=== PATIENT | female | born 1950 | race Caucasian/White ===

== ENCOUNTER 2022-01-09 12:03 | Outpatient (REF) | payer MEDICARE, SELFPAY ==
[2022-01-09 14:24] LABS: C Reactive Protein 0.06 mg/dL (< or = 0.50); Uric Acid 3.8 mg/dL (2.4-5.7)
[2022-01-09 15:12] LABS: Erythrocyte Sedimentation Rate 29 MM/HR (0-20)
== END 2022-01-09 12:04 | disposition home or self-care (01) ==
LOC: HO.MANLDS 12:03
PROVIDERS: Visit Provider Physician Assistant
DX: R22.32 Localized swelling, mass and lump, left upper limb (principal)
CPT/HCPCS: 36415; 84550; 85652; 86140

== ENCOUNTER 2024-05-17 15:38 | Outpatient (REF) | payer MEDICARE, SELFPAY ==
[2024-05-17 18:18] LABS: Alanine Aminotransferase 31 U/L (0-31); Albumin Level 4.2 g/dL (3.5-5.0); Alkaline Phosphatase 70 U/L (39-117); Anion Gap 14 (12-20); Aspartate Amino Transferase 34 U/L (5-31); Bilirubin Total 0.2 mg/dL (0.0-1.0); Blood Urea Nitrogen 15 mg/dL (9-16); Calcium 9.9 mg/dL (8.4-10.2); Carbon Dioxide 22 mmol/L (22-29); Chloride 105 mmol/L (96-108); Estimated Glomerular Filt Rate > 60; Glucose Random 100 mg/dL (60-115); Iron 81 mcg/dL (30-160); Percent Iron Saturation 26 % (15-50); Potassium 3.7 mmol/L (3.3-5.1); Sodium 137 mmol/L (135-145); Total Iron Binding Capacity 308 mcg/dL (228-428); Total Protein 7.2 g/dL (6.5-8.0); Unsaturated Iron Binding 227 ug/dL
[2024-05-17 18:32] LABS: T4 Thyroxine 8.6 ug/dL (4.5-12.0); Thyroid Stimulating Hormone 2.22 uIU/mL (0.32-4.0)
[2024-05-17 18:51] LABS: Vitamin B12 904 pg/mL (200-900)
== END 2024-05-17 15:39 | disposition home or self-care (01) ==
LOC: HO.MANLDS 15:38
PROVIDERS: Visit Provider Internal Medicine
DX: R41.3 Other amnesia (principal)
CPT/HCPCS: 36415; 80053; 82607; 83540; 84436; 84443

== ENCOUNTER 2024-12-08 13:53 | Outpatient (REF) | payer MEDICARE, SELFPAY ==
--- OUTSIDE RECORDS SUMMARY | 2024-12-08 14:25 | XMS_ITS | Data Portability ---
Author Organization [facility] Home Service Address [address] [place] [address] Assessment Encounter Date Assessment Date Assessment LastModified by Organization Details LastModified Time 05/17/2024 05/17/2024 [address] [place] [address] (DINING ROOM TABLES SET UP ATTENDANT) MDM HIGH MUST MEET 2 OUT OF 3 ELEMENTS: PROBLEMS, DATA OR RISK ELEMENT 1: PROBLEMS 1 OR MORE CHRONIC ILLNESS W/SEVERE EXACERBATION, PROGRESSION MAY REQUIRE HOSPITAL LEVEL CARE OR 1 ACUTE OR CHRONIC ILLNESS OR INJURY THAT POSES A THREAT TO LIFE OR BODILY FUNCTION ELEMENT 2: DATA: MUST MEET 2 OF 3 CATEGORIES CATEGORY 1 REVIEW OF PRIOR EXTERNAL NOTES REVIEW OF THE RESULTS ORDERING OF EACH TEST ASSESSMENT REQUIRING INDEPENDENT HISTORIAN(S) CATEGORY 2: INDEPENDENT INTERPRETATION OF TESTS BY ANOTHER PROVIDER/SPECIALI ST CATEGORY 3: DISCUSSION OF MGT OR TEST INTERPRETATION W/EXTERNAL PHYSICIAN/SPECIAL IST ELEMENT 3: RISK HIGH RISK OF MORBIDITY FROM ADDITIONAL DIAGNOSTIC TESTING OR TREATMENT PROVIDER MUST THOROUGHLY DOCUMENT EACH ELEMENT THAT IS COVERED pt and seen and evaluated with extensive discussion total time greater than 40 min of which 10 minwas physical eval. Not available 05/17/2024 21:18:43 08/23/2024 08/23/2024 [email or web address] Not available 09/2024 12:37:37 09/20/2024 09/20/2024 [address] [place] [address] (DINING ROOM TABLES SET UP ATTENDANT) : MDM LOW MUST MEET 2 OF 3 ELEMENTS: PROBLEMS, DATA OR RISK ELEMENT 1: PROBLEMS ADDRESSED (LOW): 2 OR MORE SELF-LIMITED OR MINOR PROBLEMS OR 1 STABLE CHRONIC ILLNESS OR 1 ACUTE UNCOMPLICATED ILLNESS OR INJURY ELEMENT 2: DATA TO BE REVISED AND ANALYZED (LOW) MUST MEET 1 OF 2 CATEGORIES: CATEGORY 1. REVIEW OF PRIOR EXTERNAL NOTES/RESULTS, ORDERING OF TEST(S) CATEGORY 2. ASSESSMENT REQUIRING INDEPENDENT HISTORIAN(S) INCLUDE WHO THE HISTORIAN IS AND RELATION TO PT AND WHY PT IS UNABLE TO GIVE COMPLETE HISTORY ELEMENT 3: RISK (LOW) RISK OF COMPLICATIONS AND/OR MORBIDITY OR MORTALITY OF PATIENT MANAGEMENT PROVIDER MUST THOROUGHLY DOCUMENT ALL OF THE ELEMENTS COVERED Not available 09/20/2024 13:20:17 12/08/2024 12/08/2024 [address] [place] [address] (DINING ROOM TABLES SET UP ATTENDANT) MDM MODERATE MUST MEET 2 OUT OF 3 ELEMENTS: PROBLEMS, DATA OR RISK ELEMENT 1: PROBLEMS ADDRESSED 1 OR MORE CHRONIC ILLNESS WITH EXACERBATION OR 2 OR MORE STABLE CHRONIC ILLNESSES OR 1 UNDIAGNOSED NEW PROBLEM OR 1 ACUTE ILLNESS W/SYMPTOMS OR 1 ACUTE COMPLICATED INJURY ELEMENT 2: DATA MUST MEET 1 OF 3 CATEGORIES CATEGORY 1: REVIEW OF PRIOR EXTERNAL NOTES, REVIEW OF RESULTS, ORDERING OF EACH TEST, ASSESSMENT REQUIRING INDEPENDENT HISTORIAN OR CATEGORY 2: INDEPENDENT INTERPRETATION OF TESTS BY ANOTHER PHYSICIAN OR SPECIALIST OR CATEGORY 3: DISCUSSION OF MGT OR TEST INTERPRETATION W/EXTERNAL PHYSICIAN OR SPECIALIST ELEMENT 3: RISK RISK OF COMPLICATIONS AND/OR MORBIDITY OR MORTALITY OF PATIENT MANAGEMENT PROVIDER MUST THOROUGHLY DOCUMENT EACH ELEMENT THAT IS COVERED Not available 12/08/2024 13:37:26 Plan of Treatment Reminders Order Date Submit Date Provider Last Modified By Organization Details Last Modified Time Details Appointments FOLLOW UP 15 2024 01:45P M DR BOLIVAR Not available Not available Not available Lab TSH, serum or plasma 2024 025 [facility], [address] [place] [address], [id number], 12/08/2024 13:42:38 CMP, serum or plasma 2024 025 [facility], [address] [place] [address], [address], 12/08/2024 13:42:38 CBC 2024 025 [facility], [address] [place] [address], [id number], 12/08/2024 13:42:38 vitamin B12 + folate, serum or blood 2023 024 [facility], [address] [place] [address], [place], [address], 05/18/2024 11:17:55 CMP, serum or plasma 2023 [facility], [address] [place] [address], [id number], 05/18/2024 11:17:55 TSH + free T4, serum 2023 [facility], [address] [place] [address], [address], 05/17/2024 15:33:31 iron + total iron-bind ing capacity (TIBC), serum 2023 [facility], [address] [place] [address], [address], 05/17/2024 15:33:31 Referral podiatris t referral 2023 024 [email or web address] Tyson Davis DPM, [address] [place] [address], [address], [place], [address], 06/25/2024 08:28:40 Procedures None recorded. Surgeries None recorded. Imaging bone density 2024 025 [email or web address] [facility], [address] [place], [address], 12/08/2024 13:58:39 XR, shoulder, 2 or more view 2024 025 [facility], [address] [facility], [place], [address], 08/24/2024 12:53:56 MRI, brain, w/o contrast 2023 024 [email or web address] Not available 05/18/2024 09:09:24 Medication Orders albuterol sulfate HFA 90 mcg/actua tion aerosol inhaler 2024 025 [facility]2025, [address] [place], [address], 12/08/2024 13:38:05 donepezil 10 mg tablet 2024 025 [facility]2024, [address] [place], [address], 08/23/2024 12:44:26 donepezil 5 mg tablet 2023 024 [facility]2024, [address] [place], [address], 05/17/2024 15:31:44 Patient TargetsNo targets recorded. Patient Instructions Encounter Date Encounter Id Patient Instructions Last Modified By Organization Details Last Modified Time 05/17/2024 [id number] pulse oximetry* Not available 05/17/2024 15:31:52 high blood pressure: care instructions Not available 05/17/2024 15:31:43 learning about high blood pressure Not available 05/17/2024 15:31:43 08/23/2024 [id number] pulse oximetry* Not available 08/23/2024 12:37:38 high blood pressure: care instructions Not available 08/23/2024 12:37:38 learning about high blood pressure Not available 08/23/2024 12:37:38 hypothyroidism: care instructions Not available 08/23/2024 12:37:38 12/08/2024 [id number] back strain: car e instructions Not available 12/08/2024 13:38:04 hypothyroidism: care instructions Not available 12/08/2024 13:38:[address] 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 in right foot right foot pain, bunion with flat foot Referring Physician: Roberta Charles, Internal Medicine, Encounter Date: 06/23/2024 Results Created Date Observation Date Name Description Value Unit Range Abnormal Flag Note LastModifiedBy Organization Detail LastModifiedTime 05/17/20 24 05/17/2024 pulse oxime try* Result 97 Not Available [facility] [address] [facility] [address], [place], [address], 04/21/2024 15:52:24 08/23/19 25 08/23/2024 pulse oxime try* Result 97 Not Available [facility] [address] [facility] [address], [place], [address], 08/20/2024 11:21:18 06/11/20 24 06/10/2024 MRI, brain , w/o contr ast No observ ation record ed. [email or web address] [facility] [address] [facility], [place], [address], 06/14/2024 11:30:50 08/24/19 25 08/24/2024 XR, jules hellen, 2 or more view No observ ation record ed. [email or web address] [facility] [address] [facility] [address], [place], [address], 08/27/2024 09:40:49 Result Notes None recorded. Problems Name Problem SNOMED Code Status Onset Date Resolution Date Notes Provider Name and Address Organization Details Recorded Time Sarika lau 358749775 Active 2018 Glynn Bolivar DO [address] [facility], [place], [address], [facility] 9 15:29:42 Localized swelling of left hand 437215790675 93824 Active 2021 ROB GALLAGHER [address] [place] [address], [address], [facility] 2 11:33:41 Memory impairmen t 198814367 Active 2022 ROB GALLAGHER [address] [place] [address], [address], [facility] 3 14:05:31 Word finding difficult y 039912645 Active 2022 ROB GALLAGHER [address] [place] [address], [address], [facility] 3 14:07:35 Anxiety 31110030 Active 2022 ROB GALLAGHER [address] [place] [address], [address], [facility] 3 14:12:08 Osteoarth ritis of joint of hand 99867284 Active 2022 ROB GALLAGHER [address] [place] [address], [address], [facility] 3 09:03:16 Osteoarth ritis of joint of hand 74728091 Active 2022 ROB GALLAGHER [address] [place] [address], [address], [facility] 3 09:03:30 Insomnia 565946174 Active 2022 ROB GALLAGHER [address] [place] [address], [address], [facility] 3 09:10:36 Occipital headache 925123 Active 2023 Glynn Bolivar, DO [address] [place] [address], [address], [facility] 4 10:55:24 Cervical radiculop athy 10411852 Active 2023 Glynn Bolivar, DO [address] [place] [address], [address], [facility] 4 17:06:42 Lesion of skin of face 008631734414 Active 2023 ROB GALLAGHER [address] [place] [address], [address], [facility] 4 14:24:57 Pain of right shoulder joint 799454665636 55041 Active 2023 ROB GALLAGHER [address] [place] [address], [address], [facility] 4 14:01:21 Neuralgia 59856120 Active 2023 ROB GALLAGHER [address] [place] [address], [address], [facility] 4 14:02:32 Pain in right foot 340206329454 107 Active 2023 ROB GALLAGHER [address] [place] [address], [address], [facility] 4 14:27:19 Lumbar sprain 910988116 Active 2024 Glynn Bolivar DO [address] [place] [address], [address], [facility] 5 13:37:12 Essential hypertens ion 84134801 Active 2017 [facility] 8 08:26:19 Migraine 70966881 Active 2017 Kaceycecilia Andrade [facility] 8 08:26:26 Gastroeso phageal reflux disease 566486056 Active 2017 Kaceycecilia Andrade [facility] 8 08:26:33 Asthma 740823722 Active 2017 Kaceycecilia Andrade [facility] 8 08:26:56 Hypothyro idism 62247369 Active 2017 Kaceycecilia Andrade [facility] 8 08:27:11 Problem Notes None recorded. Procedures Surgical History Date Name Laterality Status Provider Name and Address Organization Details Recorded Time 025 Corticosteroid Injection completed Glynn Bolivar DO [address] [place] [address], [address], [facility] 09/20/2024 13:19:48 024 Corticosteroid Injection completed Glynn Bolivar DO [address] [place] [address], [address], [facility] 04/02/2024 10:14:49 [facility] 01/12/2018 08:28:38 Carpal tunnel surgery completed Kacey [facility] 01/12/2018 08:29:02 Imaging Results Imaging Date Name Status LastModified by Organiz ation Details LastModified Time 06/10/2024 MRI, brain, w/o contrast completed [email or web address] [facility] [address] [facility], [place], [address], 06/14/2024 11:30:50 08/24/2024 XR, shoulder, 2 or more [facility] [address] [facility] [address], [place], [address], 08/27/2024 09:40:49 Procedure Notes None recorded. Medical Equipment None Reported. Allergies Allergen ID Allergen Name Allergen Category Reaction Reaction Severity Criticality Documentation Date Start Date Code Code System Note Provider Name and Address Organization Details Recorded Time 1682 Substance with sulfonami de structure and antibacte rial mechanism of action (substanc e) medicatio n Not available Not available Not available 01/12/2018 54872 8003 SNOMED Kacey Willsonmaddy [facility] 8 08:23:48 1683 Product containin g penicilli n (product) medicatio n Not available Not available Not available 01/12/2018 87913 8001 SNOMED Kaceycecilia Andrade [facility] 8 08:23:56 1684 Product containin g angiotens in-conver ting enzyme inhibitor (product) medicatio n Not available Not available Not available 01/12/2018 89278 009 SNOMED Kaceycecilia Willsonmaddy [facility] 8 08:24:03 1685 Product containin g beta adrenergi c receptor antagonis t (product) medicatio n Not available Not available Not available 01/12/2018 76720 009 SNOMED [facility] 08:24:14 1686 erythromy jean claude medicatio n Not available Not available Not available 01/12/2018 4053 RxNorm Kacey Cosmoyelitza griggs [facility] 8 08:24:23 1687 codeine medicatio n Not available Not available Not available 01/12/2018 2670 RxNorm Kacey griggs [facility] 8 08:24:35 1688 Iodinated contrast media (substanc e) medicatio n Not available Not available Not available 01/12/2018 87791 2004 SNOMED Kacey griggs [facility] 8 08:24:50 1689 strawberr y allergeni c extract food Not available Not available Not available 01/12/2018 87508 4 RxNorm Kacey griggs [facility] 8 08:25:34 1690 Pyridium medicatio n Not available Not available Not available 01/12/2018 8998 RxNorm Kacey griggs [facility] 8 08:25:52 Medications Name Sig Start Date Stop Date Status Note LastModified by Organization Details LastModified Time prednisone 10 mg tablet TAKE 4 TABS BY MOUTH FOR 2 DAYS, 3 TABS FOR 2 DAYS, 2 TABS FOR 2 DAYS AND 1 TAB FOR 2 DAYS 05/17 completed Not Available Not Available Not Available doxycycline hyclate 100 mg capsule TAKE 2 CAPSULES BY MOUTH AT ONCE WITH FOOD FOR ONE DAY active Not Available Not Available No t Available cefuroxime axetil 250 mg tablet Take 1 tablet every 12 hours by oral route. 01/19 completed Not Available Not Available Not Available donepezil 5 mg tablet TAKE 1 TABLET BY MOUTH ONCE EVERY DAY active Not Available Not Available No t Available donepezil 10 mg tablet TAKE 1 TABLET BY MOUTH EVERY DAY FOR 30 DAYS active Not Available Not Available No t Available Zithromax Z-Ronald 250 mg tablet TAKE 2 TABLETS (500 MG) BY ORAL ROUTE ONCE DAILY FOR 1 DAY THEN 1 TABLET (250 MG) BY ORAL ROUTE ONCE DAILY FOR 4 DAYS 08/24 completed Not Available Not Available Not Available sumatriptan 50 mg tablet TAKE 1 TABLET BY MOUTH FOR MIGRAINE MAY REPEAT IN ONE HOUR IF NEEDED active Not Available Not Available No t Available tramadol 50 mg tablet TAKE 1 TABLET BY MOUTH EVERY 6 HOURS NEEDED FOR 7 DAYS 07/30 completed Not Available Not Available Not Available triamcinolo ne acetonide 0.1 % topical cream APPLY THIN COAT TO AFFECTED AREA TWICE A DAY 10/21 completed Not Available Not Available Not Available levothyroxi ne 75 mcg tablet TAKE 1 TABLET BY MOUTH EVERY DAY active Not Available Not Available No t Available hydromorpho ne 2 mg tablet 06/05 completed Not Available Not Available Not Available ciprofloxac in 0.3 % eye drops 06/05 completed Not Available Not Available Not Available amlodipine 10 mg tablet TAKE 1 TABLET BY MOUTH EVERY DAY active Not Available Not Available No t Available pantoprazol e 40 mg tablet,shari yed release Take 1 tablet every day by oral route. 05/24 completed Not Available Not Available Not Available Advair Diskus 500 mcg-50 mcg/dose powder for inhalation Inhale 1 puff twice a day by inhalatio n route. 02/10 completed Not Available Not Available Not Available gabapentin 300 mg capsule TAKE 1 CAPSULE BY MOUTH EVERY DAY DIRECTED FOR 30 DAYS active Not Available Not Available No t Available montelukast 10 mg tablet TAKE 1 TABLET BY MOUTH EVERY DAY active Not Available Not Available No t Available albuterol sulfate HFA 90 mcg/actuati on aerosol inhaler INHALE 1-2 PUFFS EVERY 4-6 HOURS NEEDED 2024 active Not Available Not Available Not Avai lable ondansetron 4 mg disintegrat ing tablet TAKE 1 TABLET BY MOUTH EVERY 8 HOURS NEEDED FOR NAUSEA active Not Available Not Available No t Available doxycycline hyclate 100 mg tablet TAKE 1 TABLET TWICE A DAY BY ORAL ROUTE FOR 1 DAY. 03/25 completed Not Available Not Available Not Available tobramycin 0.3 %-dexametha sone 0.1 % eye drops,suspe nsion 06/05 completed Not Available Not Available Not Available oxycodone 5 mg tablet 06/05 completed Not Available Not Available Not Available Pepcid takes tid 06/05 completed Not Available Not Available Not Available Excedrin Migraine Take one tablet prn active Not Available Not Available No t Available diclofenac 1 % topical gel APPLY 2 GRAMS TO THE AFFECTED AREA(S) BY TOPICAL ROUTE 4 TIMES PER DAY 2022 active Not Available Not Available Not Avai lable Vitals Date Recorded Body height Body mass index (BMI) Body weight Heart rate Oxygen saturation Oxygen saturation in Arterial blood by Pulse oximetry Systolic blood pressure Diastolic blood pressure Provider Name and Address Organization Details Last Updated DateTime 4 153.67 cm 25.7 kg/m2 14381.3 8 g 66 /min 97 % 97 % 132 mm[Hg] 82 mm[Hg] Cristopher Almeida [facility] 4 15:05:59 Date Recorded Body height Body mass index (BMI) Body weight Heart rate Oxygen saturation Oxygen saturation in Arterial blood by Pulse oximetry Systolic blood pressure Diastolic blood pressure Provider Name and Address Organization Details Last Updated DateTime 4 153.67 cm 25 kg/m2 86814.0 1 g 68 /min 97 % 97 % 124 mm[Hg] 78 mm[Hg] Saskia Grmond [facility] 4 14:21:43 Date Recorded Body height Body mass index (BMI) Body weight Heart rate Oxygen saturation Oxygen saturation in Arterial blood by Pulse oximetry Systolic blood pressure Diastolic blood pressure Provider Name and Address Organization Details Last Updated DateTime 5 153.67 cm 24.2 kg/m2 29274.6 4 g 82 /min 98 % 98 % 126 mm[Hg] 76 mm[Hg] Cristopher Almeida [facility] 5 12:05:59 Date Recorded Body height Provider Name an d Address Organization Details Last Updated DateTime 09/20/2024 153.67 cm Kingsley Lloyd O [address] [facility], [place], [address], [facility] 09/20/2024 08:48:41 Date Recorded Body height Body mass index (BMI) Body weight Heart rate Oxygen saturation Oxygen saturation in Arterial blood by Pulse oximetry Systolic blood pressure Diastolic blood pressure Provider Name and Address Organization Details Last Updated DateTime 5 153.67 cm 24.5 kg/m2 53288.3 9 g 64 /min 97 % 97 % 126 mm[Hg] 82 mm[Hg] Jaja Pittman [facility] 5 13:30:54 Social History Question Answer Notes LastModified by Organizat ion Details LastModified Time Tobacco Smoking Status Never Smoker Not Available [employer] 05/23/2020 03:36:23 What Was The Date Of Your Most Recent Tobacco Screening? 12/08/2024 [email or web address] Information not available 12/08/2024 Sex: Unknown Functional Status Question Answer Note LastModified by Organization D etails LastModified Time Do you or have you ever used any other forms of tobacco or nicotine? No [email or web address] Information not available 01/09/2022 Mental Status None recorded. Family History Relationship Description Onset Age of this Age Resolved Age Notes LastModified by Organization Details LastModified Time Son Kidney disease 29 [email or web address] Not available 2019 13:29:34 Father Harmful pattern of use of alcohol 35 62 [email or web address] Not available 2019 13:29:34 Brother Alzheimer's disease [email or web address] Not available 2019 13:29:34 Medical History No medical history recorded. Gynecological HistoryNo gynecological history recorded. Obstetrics History GPAL:G 0 P 0 0 0 0 Immunizations Vaccine Type Date Status Note Provider Nam e and Address Organization Details Recorded Time COVID-19, mRNA, LNP-S, PF, 30 mcg/0.3 mL dose 1 completed Jaja griggs [facility] 01/23/2021 08:45:38 COVID-19, mRNA, LNP-S, PF, 30 mcg/0.3 mL dose 1 completed Jaja griggs [facility] 01/23/2021 08:45:45 COVID-19, mRNA, LNP-S, bivalent, PF, 50 mcg/0.5 mL or 25mcg/0.25 mL dose 2 completed Dianne griggs [facility] 06/07/2022 13:38:37 SARS-COV-2 (COVID-19) vaccine, UNSPECIFIED 3 completed Glynn Bolivar DO [address] [place] [address], [address], [facility] 06/25/2023 06:46:10 Past Encounters Encounter ID Performer Location Encounter Start Date Encounter Closed Date Diagnosis/Indication Diagnosis SNOMED-CT Code Diagnosis ICD10 Code Diagnosis Note [id number] Glynn Bolivar DO [facility] [address] [facility],[place] [address] 01/12/2018 11:03:52 01/12/2018 11:54:34 Essential hypertension 39317876 I10 well controlled Hypothyroidism 32064625 E03.9 stable Acute otitis media 23137 03 H66.[address] Jaime ortiz 1529740 6 H61.22 removed Moderate p ersistent asthma 344587022 J45.40 Gastroesop hageal reflux disease 937641063 K21.9 Tenosynovi tis of wrist 441587451 M65.839 continue splint, rest while home [id number] Glynn Bolivar [facility] [address] [facility],[place] [address] 07/29/2018 11:01:11 07/29/2018 18:01:20 Hypothyroidism 26740852 E03.9 stable Asthma 984533952 J45.90 9 Screening procedure 2012 5006 Z13.9 Essential hypertension 12460420 I10 well controlled [id number] Glynn Bolivar [facility] [address] [address] 01/19/2019 15:00:26 01/19/2019 15:38:59 Essential hypertension 47171540 I10 doing well no major issues tolerates her meds Hypothyroidism 59064433 E03.9 will need to check lab soon Asthma 569209795 J45.90 9 [place] [id number] Glynn Bolivar [facility] [address],[place] [address] 02/10/2019 09:29:49 02/10/2019 11:15:10 Pre-surgery evaluation 790534708 Z01.818 labs and ekg reviewed and are wnl WBC slightly elevated, likely due to recent ear infection she is relatively low risk and is cleared for this procedure Asthma 847106807 J45.90 9 Essential hypertension 07287770 I10 stable [id number] Glynn Bolivar [facility] [address] [facility],[place] [address] 05/24/2019 15:59:30 05/24/2019 16:35:39 Upper respiratory infection 62576666 J06.9 likely sinusitis has taken zpack in the past without issue Asthma 747881069 J45.90 9 Essential hypertension 25590116 I10 stable [id number] Glynn Bolivar [facility] [address] [facility],[place] [address] 08/24/2019 14:14:39 08/24/2019 14:51:09 Asthma 031849533 J45.909 Essential hypertension 25080639 I10 stable Migraine 71994046 G43.90 9 Headache 16100421 R51 ? cervicogen ic Neck pain 25288547 M54.2 heat, stretching , massage pt to call if she would like to have muscle relaxant will do baclofen 10 mg BID [id number] Glynn Bolivar [facility] [address] [facility],[place] [address] 12/24/2019 14:02:47 12/24/2019 14:47:36 Asthma 520031834 J45.909 stable Atypical chest pain 1025 36930 R07.89 resolved most likely musculoske letal in nature and has not had an episode since she had let herself rest [id number] Glynn Bolivar [facility] [address] [facility],[place] [address] 03/29/2020 08:56:25 03/29/2020 11:51:48 [id number] Glynn Bolivar [facility] [address] [facility] [address] 06/05/2020 13:25:28 06/05/2020 13:52:07 Asthma 010335701 J45.909 stable Hypothyroidism 18604215 E03.9 put in standing order needs recheck Essential hypertension 12537769 I10 BP excellent today [id number] Glynn Bolivar [facility] [address] [facility],[place] [address] 01/29/2021 13:27:38 01/29/2021 14:29:37 Active or passive immunization 151351052 Z23 advised Adult [facility] th examination 551424714 Z00.00 BP is excellent Allergic rhinitis 237626 04 J30.9 needs refill [id number] Glynn Bolivar [facility] [address] [facility] [address],[place] [address] 09/12/2021 11:10:02 09/12/2021 12:31:03 Lesion of skin of face 2285239322 06 L98.9 will fu with derm referralin formation given to patienttol d to call and schedule [id number] Glynn Bolivar [facility] Internal Medicine [address] [facility], [place] [address] 01/09/2022 11:07:00 01/09/2022 11:47:28 Localized swelling of left hand 6662271809 0278091 R22.32 will fu with uric acid, crp, esr to test for possible gout or pseudogout Asthma 726287539 J45.20 [place] [id number] Glynn Bolivar [facility] Internal Medicine [address] [facility], [place] [address] 10/21/2022 13:32:46 10/21/2022 16:50:26 Memory impairment 151562661 R41.3 will set up with lab work first Word findi ng difficulty 675818632 F80.89 family concernsag jose to work-up Anxiety 74156235 F41.1 related to her son being transferre d to [place] [id number] Glynn Bolivra [facility] Internal Medicine [address] [place] [address], [place] [address] 03/25/2023 10:46:02 03/25/2023 12:16:54 Migraine 73889742 G43.819 [place] [id number] Glynn Bolivar [facility] Internal [facility] [address] [facility],[place] [address] 05/14/2023 08:50:08 05/14/2023 13:41:08 Osteoarthritis of joint of hand 86165480 M19.042 will try voltaren geldoesn't do well with meds sometime Insomnia 998716699 G47.0 9 given alternativ e OTC to use for sleepingca n also use the APAP PM more frequently [id number] Glynn Bolivar [facility] Internal Medicine [address] [facility],[place] [address] 07/30/2023 08:04:00 08/01/2023 11:37:13 Migraine 18428471 G43.819 stable per patient [id number] Glynn Bolivar [facility] Internal Medicine [address] [facility], [place] [address] 10/07/2023 09:57:45 10/07/2023 11:06:45 Asthma 253875358 J45.20 stable and asymptomat ic Essential hypertension 84144232 I10 doing well no major issues tolerates her meds Hypothyroidism 96850323 E03.9 will need to check lab soon Migraine 08337679 G43.81 9 has been stable Occipital headache 05302 7 R51.9 need to r/o intrinsic ds first believe she will benefit from PT she will contact her ownif above work up neg then this is occip neuralgia [id number] Glynn Bolivar [facility] Internal [facility] [address] [facility], [place] [address] 12/31/2023 13:53:02 12/31/2023 15:30:56 Depression screening 238601630 Z13.31 0 Lesion of skin of face 4918876034 06 L98.9 will fu with derm referralin formation given to patienttorin briones to call and schedule (second referral, patient didn't make an appt last time) [id number] Glynn Bolivar [facility] Internal [facility] [address] [facility], [place] [address] 03/12/2024 13:37:42 03/12/2024 14:38:56 Pain of right shoulder joint 7391719521 5839687 M25.511 will start on prednisone taper and will give her something for the nerve pain Neuralgia 37032874 M79.2 will start on pain med for nerve pain [id number] Glynn Bolivar [facility] Internal [facility] [address] [facility], [place] [address] 04/02/2024 09:47:33 04/02/2024 10:16:16 Pain of right shoulder joint 1352672363 3736972 M25.511 jacob well bernadette [id number] Glynn Bolivar [facility] Internal Medicine [address] [facility] [address],[place] [address] 05/17/2024 14:41:56 05/17/2024 15:37:11 Asthma 489810357 J45.20 stable and asymptomat ic Essential hypertension 50334626 I10 doing well no major issues tolerates her meds Gastroesop hageal reflux disease 411367362 K21.9 no sx Hypothyroidism 57295495 E03.9 will need to check lab soon Memory impairment 825606 006 R41.3 we will give her a trial of donepizil 10mg [id number] [facility] 179 [facility], [place] 7 06/23/2024 14:17:07 06/23/2024 14:41:02 Pain in right foot 3668441638 29493 M79.671 right foot pain due to bone deformity and bunion, arthritisw ill f/u wit [id number] [facility] [address] [facility] [address], [place] [address] 08/23/2024 11:44:47 08/23/2024 14:45:42 Asthma 933305314 J45.20 stable and asymptomat ic Essential hypertension 15256866 I10 doing well no major issues tolerates her meds Hypothyroidism 20098484 E03.9 will need to check lab soon Memory impairment 729107 006 R41.3 we will give her a increase of donepizil to 10mg Pain of ri ght shoulder joint 3700038532 3185686 M25.511 jacob well bernadette [id number] [facility] [address] [facility] [address],[place] [address] 09/20/2024 08:44:57 09/20/2024 09:05:06 Pain of right shoulder joint 9183441741 4389940 M25.511 jacob well bernadette [id number] Glynn Bolivar [facility] Medicine [address] [facility] [address],[place] [address] 12/08/2024 13:22:36 12/08/2024 13:58:39 Depression screening 193562214 Z13.31 neg Asthma 462124316 J45.20 stable and asymptomat ic Lumbar sprain 357930646 S33.5XXD doesnt want treatment Hypothyroidism 41835373 E03.9 will need to check lab soon Postmenopa usal osteopenia 398274720 M85.80 Z78.0 Health Concerns Section Related Observation LastModified by Organization Detai ls LastModified Time None Recorded Concern Status LastModified by Organization Details LastModified Time None Recorded Advance Directives Directive None Recorded Payers Encounter Date Sequence Insurance Name Policy Number Policy Greene Covered Member ID Greene Member ID Guarantor Name 05/17/2024 1 [facility] (MEDICARE REPLACEMENT PPO) [id number] Iris Viera [id number] Iris Viera 06/23/2024 1 [place] PPO) [id number] Iris Viera [id number] Iris Viera 08/23/2024 1 [place] PPO) [id number] Iris Viera [id number] Iris Viera 09/20/2024 1 [place] PPO) [id number] Iris Viera [id number] Iris Viera 12/08/2024 1 [place] PPO) [id number] Iris Viera [id number] Iris Viera Notes Date Note Type Note Provider Name and Address Organization Details Recorded Time 4 text/htm l here for rechkstates feels well'appetite is oksleep is good (and son) both say that they have noticed worseningsymptoms of her impairments with memory Glynn Bolivar, DO [address] [facility], [place], [address], [facility] 05/17/2024 21:18:54 4 text/htm l right foot pain x 2 weeks the patient reports she has been having right foot pain x 2 weeksthe patient reports it started to get worse with the last two weeks without trauma or injury the patient does have a bunion with arthritishas a flat foot, disruption of weight is all along the lateral side of her foot recommended ROB GALLAGHER [address] [place] [address], [address], [facility] 06/23/2024 14:37:55 5 text/htm l Care Management - HypertensionReported bypatient.Self Care:not under emotional stress Severity:symptoms are improving; does not interfere with daily activities Associated Symptoms:no dizziness; no lightheadedness; no chest pain; no shortness of breath; no palpitations; no edema; no calf muscle cramps; no blurred vision; no confusion; no headaches; no fatigue here for rechk following a episode of vomiting and vagal response while at a restauranthaving some right shoullder pain nowher memory is good for long termbut her short term memory is getting worse Glynn Bolivar DO [address] [place] [address], [address], [facility] 08/23/2024 12:44:55 5 text/htm l here for jacob injection Glynn Bolivar DO [address] [place] [address], [address], [facility] 09/20/2024 13:21:04 5 text/htm l Back PainReported bypatient.Location:pain is not radiating Severity:pain level 3/10; same compared to previous episode; nagging pain Associated Symptoms:no fever; no weak limbs; no numbness of the legs/feet; no tingling; no incontinence; no shortness of breath; no unintentional weight loss; no chills; no night sweats; no gait instability; no bowel/bladder symptoms; no recent increase in stress Previous Injury:no prior injury to back; no prior malignancy Glynn Bolivar DO [address] [place] [address], [address], [facility] 12/08/2024 13:47:36 OBGyn Episode No OBEpisode recorded.
--- OUTSIDE RECORDS SUMMARY | 2024-12-08 14:25 | XMS_ITS | Continuity of Care Document ---
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 Procedures None recorded. Surgeries None recorded. Imaging bone density 2024 025 [email or web address] [facility], [address] [facility], [place], [address], 12/08/2024 13:58:39 Medication Orders albuterol sulfate HFA 90 mcg/actua tion aerosol inhaler 2024 025 [facility], [address] [facility], [place], [address], 12/08/2024 13:38:05 Patient TargetsNo targets recorded. Patient Instructions Encounter Date Encounter Id Patient Instructions Last Modified By Organization Details Last Modified Time 12/08/2024 [id number] back strain: car e instructions Not available 12/08/2024 13:38:04 hypothyroidism: care instructions Not available 12/08/2024 13:38:04 Reason for Referral None Reported. Problems Name Problem SNOMED Code Status Onset Date Resolution Date Notes Provider Name and Address Organization Details Recorded Time Sarika lau 316398423 Active 2018 Glynn Bolivar DO [address] [place], [address], [facility] 9 15:29:42 Localized swelling of left hand 843722827749 43838 Active 2021 ROB GALLAGHER [address] [place], [address], [facility] 2 11:33:41 Memory impairmen t 189264639 Active 2022 ROB GALLAGHER [address] [place], [address], [facility] 3 14:05:31 Word finding difficult y 880160448 Active 2022 ROB GALLAGHER [address] [place] [address], [address], [facility] 3 14:07:35 Anxiety 60868352 Active 2022 ROB GALLAGHER [address] [place], [address], [facility] 3 14:12:08 Osteoarth ritis of joint of hand 17571784 Active 2022 ROB GALLAGHER [address] [place] [address], [address], [facility] 3 09:03:16 Osteoarth ritis of joint of hand 54821650 Active 2022 ROB GALLAGHER [address] [place] [address], [address], [facility] 3 09:03:30 Insomnia 137084057 Active 2022 ROB GALLAGHER [address] [place] [address], [address], [facility] 3 09:10:36 Occipital headache 419352 Active 2023 Glynn Bolivar DO [address] [place] [address], [address], [facility] 4 10:55:24 Cervical radiculop athy 28495528 Active 2023 Glynn Bolivar DO [address] [place] [address], [address], [facility] 4 17:06:42 Lesion of skin of face 427115005075 Active 2023 ROB GALLAGHER [address] [place] [address], [address], [facility] 4 14:24:57 Pain of right shoulder joint 001454772677 24286 Active 2023 ROB GALLAGHER [address] [place] [address], [address], [facility] 4 14:01:21 Neuralgia 61495675 Active 2023 ROB GALLAGHER [address] [place] [address], [address], [facility] 4 14:02:32 Pain in right foot 833572623645 107 Active 2023 ROB GALLAGHER [address] [place] [address], [address], [facility] 4 14:27:19 Lumbar sprain 670412815 Active 2024 Glynn Bolivar DO [address] [place] [address], [address], [facility] 5 13:37:12 Essential hypertens ion 98819075 Active 2017 [facility] 08:26:19 Migraine 36613266 Active 2017 [facility] 08:26:26 Gastroeso phageal reflux disease 404003166 Active 2017 Kacey Andrade [facility] 8 08:26:33 Asthma 842447782 Active 2017 Kacey Andrade [facility] 8 08:26:56 Hypothyro idism 50969785 Active 2017 Kaceycecilia Andrade [facility] 8 08:27:11 Problem Notes None recorded. Procedures Surgical History Date Name Laterality Status Provider Name and Address Organization Details Recorded Time 025 Corticosteroid Injection completed Glynn Bolivar DO [address] [place] [address], [address], [facility] Internal [facility] 09/20/2024 13:19:48 024 Corticosteroid Injection completed Glynn Bolivar DO [address] [place] [address], [address], [facility] Internal [facility] 04/02/2024 10:14:49 Cholecystectomy completed Kacey Andrade [facility] Internal [facility] 01/12/2018 08:28:38 Carpal tunnel surgery completed Kaceycecilia Andrade [facility] 01/12/2018 08:29:02 Imaging Results None recorded. Procedure Notes None recorded. Medical Equipment None Reported. Allergies Allergen ID Allergen Name Allergen Category Reaction Reaction Severity Criticality Documentation Date Start Date Code Code System Note Provider Name and Address Organization Details Recorded Time 1682 Substance with sulfonami de structure and antibacte rial mechanism of action (substanc e) medicatio n Not available Not available Not available 01/12/2018 59369 8003 SN[facility]ED [facility] 08:23:48 1683 Product containin g penicilli n (product) medicatio n Not available Not available Not available 01/12/2018 78178 8001 SNOMED [facility] 8 08:23:56 1684 Product containin g angiotens in-conver ting enzyme inhibitor (product) medicatio n Not available Not available Not available 01/12/2018 54273 009 SNOMED Kaceycecilia Andrade [facility] 8 08:24:03 1685 Product containin g beta adrenergi c receptor antagonis t (product) medicatio n Not available Not available Not available 01/12/2018 85352 009 SNOMED [facility] 8 08:24:14 1686 erythromy jean claude medicatio n Not available Not available Not available 01/12/2018 4053 RxNorm [facility] 8 08:24:23 1687 codeine medicatio n Not available Not available Not available 01/12/2018 2670 RxNorm Kaceycecilia Andrade [facility] 8 08:24:35 1688 Iodinated contrast media (substanc e) medicatio n Not available Not available Not available 01/12/2018 98767 2004 SNOMED [facility] 8 08:24:50 1689 strawberr y allergeni c extract food Not available Not available Not available 01/12/2018 65915 4 RxNorm [facility] 8 08:25:34 1690 Pyridium medicatio n Not available Not available Not available 01/12/2018 8998 RxNorm [facility] 8 08:25:52 Medications Name Sig Start Date [...] 2024 active Not Available Not Available Not Robert markham ondansetron 4 mg disintegrat ing tablet TAKE [...] Updated DateTime 5 153.67 cm 24.5 kg/m2 07247.3 9 g 64 /min 97 % 97 % 126 mm[Hg] 82 mm[Hg] [facility] 5 13:30:54 Social History Question Answer Notes LastModified by Organizat ion Details LastModified Time Tobacco Smoking Status Never Smoker Not Available [facility] 05/23/2020 03:36:23 What Was The Date Of [...] mcg/0.3 mL dose 1 completed Jaja griggs [facility] Internal [facility] 01/23/2021 08:45:38 COVID-19, mRNA, LNP-S, PF, 30 mcg/0.3 mL dose 1 completed Jaja griggs [facility] Internal [facility] 01/23/2021 08:45:45 COVID-19, mRNA, LNP-S, bivalent, PF, 50 mcg/0.5 mL or 25mcg/0.25 mL dose 2 completed Dianne griggs [facility] Internal [facility] 06/07/2022 13:38:37 SARS-COV-2 (COVID-19) vaccine, UNSPECIFIED 3 completed Glynn Bolivar DO [address] [place] [address], [address], [facility] Internal [facility] 06/25/2023 06:46:10 Past Encounters Encounter ID Performer Location Encounter Start Date Encounter Closed Date Diagnosis/Indication Diagnosis SNOMED-CT Code Diagnosis ICD10 Code Diagnosis Note [id number] Glynn Bolivar DO [facility] Internal Medicine [address] [place] [address],[place] [address] 12/08/2024 13:22:36 12/08/2024 13:58:39 Depression screening 626181271 Z13.31 neg Asthma 881630535 J45.20 stable and asymptomat ic Lumbar sprain 784408593 S33.5XXD doesnt want treatment Hypothyroidism 47550586 E03.9 will need to check lab soon Postmenopa usal osteopenia 945923555 M85.80 Z78.0 Health Concerns Section Related Observation LastModified by Organization Detai ls LastModified Time None Recorded Concern Status LastModified by Organization Details LastModified Time None Recorded Payers Encounter Date Sequence Insurance Name Policy Number Policy Greene Covered Member ID Greene Member ID Guarantor Name 12/08/2024 1 [facility]: MEDICARE PPO BLUE (MEDICARE REPLACEMENT PPO) [id number] Iris Viera [id number] Iris Viera Notes Date Note Type Note Provider Name a de Address Organization Details Recorded Time 12/08/2024 text/html Back PainReporte d bypatient.Location :pain is not radiating Severity:pain level 3/10; same compared to previous episode; nagging pain Associated Symptoms:no fever; no weak limbs; no numbness of the legs/feet; no tingling; no incontinence; no shortness of breath; no unintentional weight loss; no chills; no night sweats; no gait instability; no bowel/bladder symptoms; no recent increase in stress Previous Injury:no prior injury to back; no prior malignancy Glynn Bolivar, [address] [facility], [place], [address], [facility] 12/08/2024 13:47:36 OBGyn Episode No OBEpisode recorded.
[2024-12-08 18:07] LABS: MANUAL DIFF FLAG NO
[2024-12-08 18:20] LABS: Basophils Absolute Auto 0.1 X10*3/uL (0.0-0.2); Eosinophils Absolute Auto 0.2 X10*3/uL (0.0-0.4); Eosinophils Percent Auto 2.5 % (0-4); Hematocrit 35.7 % (37.0-47.0); Hemoglobin 11.7 g/dl (12.0-16.0); Imm Gran Abs Auto 0.02 X10*3/uL (0.00-0.03); Imm Gran Pct Auto 0.3 % (0.0-0.4); Lymphocytes Absolute Auto 1.2 X10*3/uL (1.2-4.9); Lymphocytes Percent Auto 16.2 % (20-40); Mean Corpuscular HGB Conc 32.8 g/dl (31.0-35.0); Mean Corpuscular Hemoglobin 30.8 pg (27.0-33.0); Mean Corpuscular Volume 93.9 fL (80.0-98.0); Mean Platelet Volume 10.3 fL (9.4-12.3); Monocytes Absolute Auto 0.6 X10*3/uL (0.1-1.2); Monocytes Percent Auto 8.9 % (2-11); Neutrophils Absolute Auto 5.1 x10*3/uL (2.0-8.3); Neutrophils Percent Auto 71.1 % (45-73); Platelet Count 301 X10*3/uL (160-400); Red Cell Distribution Width 14.1 % (11.0-16.0); White Blood Count 7.2 X10*3/uL (4.8-10.8)
[2024-12-08 18:36] LABS: Alanine Aminotransferase 20 U/L (0-31); Albumin Level 4.1 g/dL (3.5-5.0); Alkaline Phosphatase 75 U/L (39-117); Anion Gap 15 (12-20); Aspartate Amino Transferase 32 U/L (5-31); Bilirubin Total 0.2 mg/dL (0.0-1.0); Blood Urea Nitrogen 25 mg/dL (9-16); Carbon Dioxide 24 mmol/L (22-29); Chloride 105 mmol/L (96-108); Estimated Glomerular Filt Rate 58; Glucose Random 90 mg/dL (60-115); Potassium 3.7 mmol/L (3.3-5.1); Sodium 140 mmol/L (135-145)
[2024-12-08 18:55] LABS: Thyroid Stimulating Hormone 1.76 uIU/mL (0.32-4.0)
== END 2024-12-08 13:54 | disposition home or self-care (01) ==
LOC: HO.MANLDS 13:53
PROVIDERS: Visit Provider Internal Medicine
DX: E03.9 Hypothyroidism, unspecified (principal)
CPT/HCPCS: 36415; 80053; 84443; 85025